=== PATIENT | female | born 1995 | race Hispanic/Latino ===

== ENCOUNTER 2018-11-01 14:02 | Inpatient (IN) | payer BC, OTHER ==
[2018-11-01] MEDS ORDERED: miSOPROStol 100 MCG TAB VAG PRN (16:07)
[2018-11-01] MEDS ORDERED: DIPHENHYDRAMINE 25 MG TAB/CAP PO PRN (16:09)
[2018-11-01] MEDS ORDERED: PROMETHAZINE 25 MG/ML VIAL IM PRN (16:09)
[2018-11-01] MEDS ORDERED: MIDAZOLAM HCL 2 MG/2 ML INJ IV PRN (16:09)
[2018-11-01] MEDS ORDERED: ZOLPIDEM TARTRATE 5 MG TABLET PO PRN (16:09)
[2018-11-01] MEDS ORDERED: Ringers Lactate 1,000 ML IV PRN (16:09)
[2018-11-01] MEDS ORDERED: MEPERIDINE HCL 25 MG/0.5 ML IV PRN (16:09)
[2018-11-01] MEDS ORDERED: METHYLERGONOVINE 0.2MG/ML AMP IM PRN (16:09)
[2018-11-01] MEDS ORDERED: CARBOPROST TROME 250 MCG/ML IM PRN (16:09)
[2018-11-01] MEDS ORDERED: MAGNES/ALUMIN/SIMET 30ML UCUP PO PRN (16:09)
[2018-11-01] MEDS ORDERED: BUTORPHANOL 1 MG/ML INJ IV PRN (16:09)
--- NOTE | 2018-11-01 16:58 | PREOPHP ---
Date of Admission: 11/01/2018 A 22-year-old primigravida, 38 weeks 6 days, with preeclampsia-mild. Blood pressures in the office 1 40/80, +1 to +2 proteinuria, +2 to +3 pretibial and general body edema, brisk reflexes. 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 Pros and cons of Cytotec discussed. Her cervix is unfavorable, but she wishes to proceed , and I think clinically we need to proceed at this point. She is 1 cm 50% effaced, soft, but the ba by is -2 or even higher station. In fact, I am not 100% sure the baby is vertex, but it has been in the office, and I think tonight it is, but we will order an x-ray just to be sure. If the baby is no t vertex, we will proceed with section tonight. Full admission talk given. Anticipate deli very sometime tomorrow. ARTURO/RIGO Voice ID: [id number]
[2018-11-01] MEDS ORDERED: Ringers Lactate 1,000 ML IV SCH (17:00)
[2018-11-01] MEDS ORDERED: OXYTOCIN/LR 20 UNIT/1,000 ML BAG IV SCH (17:00)
[2018-11-01 17:06] LABS: RPR Titer ND
--- NOTE | 2018-11-01 17:06 | RAD REPORT ---
EXAM DESCRIPTION: RAD - Abdomen 1 View (KUB) - 11/01/2018 4:57 pm CLINICAL HISTORY: . Assess presentation FINDINGS: Cephalic presentation. Spine maternal right
[2018-11-01 17:10] LABS: Absolute Lymphocytes (CBC) 1.7 K/uL (0.7-4.9); Basophils % 0.2 % (0-1.3); Hematocrit 36.6 % (36.0-45.0); Lymphocytes % 13.2 % (15.3-44.8); MPV 7.8 fL (7.6-11.3); Monocytes % 4.7 % (3.3-12.3); RBC Red Blood Cell Count 4.72 M/uL (3.86-4.86); Urine Appearance CLOUDY; Urine Bilirubin NEGATIVE (NEG); Urine Blood NEGATIVE (NEG); Urine Color YELLOW; Urine Glucose NEGATIVE (NEG); Urine Protein NEGATIVE (NEG); Urine Specific Gravity 1.025 (1.005-1.030)
[2018-11-01 17:15] LABS: Urine Microscopic Reflex ORDER UMIC
[2018-11-01 17:26] LABS: Urine Bacteria >50 /HPF (<20); Urine Culture Reflex Order REFLEXED; Urine RBC <5 /HPF (NONE SEEN)
[2018-11-01 17:48] VITALS: BMI 39.4
[2018-11-01] MEDS ORDERED: Ringers Lactate 1,000 ML IV ONE (20:27)
[2018-11-01 22:02] LABS: RPR (Rapid Plasma Reagin) NON-REACT (NON-REACT)
[2018-11-02] MEDS ORDERED: HYDRALAZINE HCL 20 MG/ML VIAL IV PRN ×2 (10:08→19:36)
[2018-11-02] MEDS ORDERED: MAGNESIUM SULF/STERILE WATER 1,000 ML IV SCH ×2 (11:00→20:00)
[2018-11-02] MEDS ORDERED: ROPIVACAINE HCL 100 ML IV PRN (11:13)
[2018-11-02] MEDS ORDERED: FENTANYL CITR 100 MCG/2 ML IV ONE (11:13)
[2018-11-02] MEDS ORDERED: ROPIVACAINE HCL 0.2% 20ML AMP SQ ONE (11:15)
[2018-11-02] MEDS ORDERED: CEFAZOLIN/SWI 2gm 2 GM/20 ML SYR IVP SCH (17:45)
[2018-11-02] MEDS ORDERED: METHYLERGONOVINE 0.2MG/ML AMP IM ONE (17:45)
[2018-11-02] MEDS ORDERED: CARBOPROST TROME 250 MCG/ML IM ONE (17:45)
[2018-11-02] MEDS ORDERED: CEFAZOLIN/SWI 2gm 2 GM/20 ML SYR ONE (17:51)
[2018-11-02] MEDS ORDERED: OXYTOCIN 10 UNIT/ML ML IV ONE (17:52)
[2018-11-02] MEDS ORDERED: LIDOCAINE 2% W/EPI 1:200,000 MPF 20 ML VIAL IM ONE ×2 (17:53→18:07)
[2018-11-02] MEDS ORDERED: NA CIT/CITRIC AC 30 ML ORAL UDC ONE (17:53)
[2018-11-02] MEDS ORDERED: METOCLOPRAMIDE 10 MG/2mL INJ ONE (17:53)
[2018-11-02] MEDS ORDERED: FAMOTIDINE 20 MG/2 ML VIAL IV ONE (17:53)
--- NOTE | 2018-11-02 18:49 | PN ---
We have moved to 22 milliunits at nurse's request. She is still having some dysfunctional labor monica lilly. She will have 3 to 4 contractions regularly and then space out and then contract again regularl y for 2 to 3 contractions. FHTs are reasonably reactive. The patient is so comfortable. She is asl eep and cannot feel anything. We have reduced the maintenance from 10 to 8. Again pelvic rocking di scussed. The baby is still definitely occiput posterior, but has come to a 0 station. I think if th e baby rotates it will give much more rapid progress. We will check her again in an hour or so. ARTURO/RIGO Voice ID: [id number] Report ID: [id number]
[2018-11-02] MEDS ORDERED: KETOROLAC 30 MG/ML INJ IM ONE (19:37)
--- NOTE | 2018-11-02 22:01 | PREOPHP ---
Date of Admission: 11/01/2018 History Of Present Illness: A 22-year-old primigravida, 39 weeks. Cytotec last night, removed this morning. Rupture of membranes, 1.5 cm. The patient progressed to 7.5 cm and has experienced seconda ry arrest of labor. Asynclitic position of the baby's head. Still 0 station, 7.5 cm for over 3-1/2 hours now in spite of being on up to 24 milliunits of Pitocin. Pitocin has been discontinued. The b alin looks good with good variability. She has an epidural but it is starting to wear off. Dr. Oscar hollis has ordered 15 cc of 2% lidocaine with epinephrine given. Pros and cons of discussed. T he patient is requesting to proceed at this point. Infection; blood loss; anesthetic complications; injury to bladder, bowel, ureter; postoperative complications; clots in legs and pneumonia discussed. The patient knows fully well this does not constitute all the possible problems that could occur du ring or following the surgery, wishes to proceed. Family History: Noncontributory. Allergies: SHE HAS NO ALLERGIES. Physical Examination: Vital Signs: Are stable other than her blood pressure being elevated and she was on magnesium sulfate for preeclampsia that has been temporarily discontinued. Heart and Lungs: Clear at this point. Pelvic exam: Is as stated. Extremities: The patient has +2 or more edema. Plan: We will proceed with primary section for failure to progress in labor. ARTURO/RIGO Voice ID: [id number]
--- NOTE | 2018-11-03 01:08 | OP ---
Surgeon: Alden Kimbrough MD This is a 22-year-old, primigravida, at 39 weeks at time of delivery. Had a Cytotec inserted yesterd ay. Had developed preeclampsia with an unfavorable cervix. During the labor, the patient progressed to 7.5 cm with baby straight OP and asynclitic. In spite of 22 milliunits of Pitocin, stuck at 7.5 cm for 3.5 hours or more. Decision was made to go with . Infection; blood loss; anesthetic complications; injury to bladder, bowel, ureter; postoperative complications; clots in legs; and pneu monia discussed. The patient knows fully well this does not constitute all the possible problems royce t could occur during or following surgery. Epidural anesthesia was employed. Patient had magnesium sulfate started during her labor; this was stopped during the delivery. After patient was prepped an d draped and time-out was performed, Pfannenstiel incision was created. The incision was carried to the fascia. The fascia was incised and incision carried transversely bilaterally. Anterior and post erior fascia planes were developed with both blunt and sharp dissection. Small bleeders were fulgura bryce. Peritoneum was entered bluntly. Low transverse uterine incision was created. A 5 pounds 12 ou nce male delivered through the incision. Apgars 9 and 9. Straight occiput posterior. Nuchal cord loosely x1. Cord blood specimen obtained. Placenta was removed manually. Uterus clot removed from the peritoneal cavity and cleared off clot and blood. Mild to moderate hypotonus noted. 0.10 units of Pitocin given into the myometrium and 250 mg of Hemabate given IM. Estimated blood loss dur ing procedure 1100 cc. Uterus was closed with a running locked stitch followed by 2 [id number]-[id number] stitches in the left angle and then an imbricating stitch with 1 chromic. Gutters cleared off clot a nd blood. Uterus was replaced in the peritoneal cavity. Inspection of suture line showed no further bleeding. At this time, the muscles were reapproximated with 0 Vicryl 3 interrupted sutures. The f ascia was closed with 1 PDS, running from either angle to the midline. Subcutaneous tissue closed wi th 2-0 plain, absorbable david placed and then metal david. The patient had been given 2 g of An cef prior to the procedure. Tolerated all procedures well. Transferred back to her room in good con dition. Final Diagnoses: Term intrauterine , Cytotec for labor induction, failure to progress in la bor, persistent occiput posterior, preeclampsia, [id number]-[id number] uterine hypotonus. ARTURO/RIGO Voice ID: [id number] Report ID: [id number]
[2018-11-03 03:23] LABS: Hematocrit 35.9 % (36.0-45.0)
[2018-11-03] MEDS ORDERED: CEFAZOLIN 2 GM in NA CHLORIDE 0.9% 100 ML IVPB ONE (04:00)
--- NOTE | 2018-11-03 07:32 | PN ---
Postoperatively, patient has done quite well. Magnesium sulfate has been discontinued as her output far exceeds what was required. Vital signs are stable. Blood pressures are moderating. Lochia is n ormal. She has only had Toradol 1 time. No other pain medicines. She is reporting slight gas disco mfort this morning. We will give her a stimulant, and if it has not worked by the early afternoon, e ither a small suppository or small enema. Full postoperative talk given. We will discontinue her IV this morning, Mims catheter around lunchtime. If she continues to progress well, she will probably go home tomorrow afternoon. Full dismissal instructions given. At home, she is to report any tempe rature elevation of 100 degrees or greater, severe pain, heavy bleeding, or any other type of abnorma lities. We will send her home with tramadol for analgesia. She will come to the office next week fo r staple removal. She has had her Tdap immunization. She has no post epidural problems. Doing quit e well. ARTURO/RIGO Voice ID: [id number] Report ID: [id number]
[2018-11-03] MEDS ORDERED: OXYTOCIN/LR 20 UNIT/1,000 ML BAG IV SCH (08:00)
[2018-11-03] MEDS: Oxycodone HCl/Acetaminophen 1 TAB TAB PO PRN ×3 (08:30→19:42)
[2018-11-03] MEDS ORDERED: MAGNESIUM HYDROXIDE 8% 30 ML PO PRN (09:00)
[2018-11-04] MEDS: Oxycodone HCl/Acetaminophen 1 TAB TAB PO PRN ×2 (01:30→12:32)
[2018-11-04 08:20] VITALS: BP 140/83; TEMP 98.2
[2018-11-04 18:23] LABS: HBsAG Nonreactive (Nonreactive)
--- NOTE | 2018-11-05 02:31 | DS ---
Date of Discharge: 11/04/2018 A 22-year-old primigravida, 39 weeks at the time of delivery. The patient was followed antepartum. Rh positive. Immune to Rubella. Negative beta strep screen. Noted to have pre-eclampsia, unfavorable cervix. Cytotec was inserted x2 at 38 weeks and 6 days. The following morning at 39 weeks, rupture of membranes was performed. The patient was 1.5 cm at that time. Vertex well applied. During the day, received Stadol 1 mg IV, Phenergan 25 mg IM 1 time. Progressed slowly during the day. Showed signs of preeclampsia and was started on magnesium sulfate. At approximately 4-5 cm, requested and received epidural anesthesia. Progressed to approximately 7 cm, was noted to be straight occiput posterior early in the labor and with asynclitic vertex presentation. After achieving 7.5 cm, she stayed that way for 3-1/2 hours in spite of good contractions and up to 24 milliunits of Pitocin. It has decided to proceed with section. This was performed. A 5-pound and 12-ounce male infant was delivered, Apgars 9 and 9, from a straight occiput posterior and indeed asynclitic presentation. Mild uterine hypertonus. 10 units of Pitocin was given into the uterus directly and 250 mg of Hemabate given. Estimated blood loss 1100 cc. Ancef given for prophylaxis pre and postoperatively. The patient has done well, is afebrile, ambulating, and voiding. Lochia is normal. Her blood pressures have moderated, almost back down to normal. She will be dismissed later today to report back to my office next week for followup, to report any temperature elevation of 100 degrees or greater, severe pain, heavy bleeding, or any other type of abnormalities. Dismissed with tramadol, although she may elect to take Motrin instead. She has had her Tdap immunization. She has no post-epidural problems. Final Diagnoses: Term intrauterine 39 weeks at delivery, Cytotec for labor induction, preeclampsia primary section, straight occiput posterior asynclitic vertex presentation, uterine hypotonus epidural anesthesia. ARTURO/RIGO Voice ID: [id number] Report ID: [id number] GREGORY
--- NOTE | 2018-11-05 16:16 | PN ---
The patient is still 7.5 cm. She has not brought the baby down any further. Cervix on the right kendell e approximately 9 o'clock is still not retracted. Baby is definitely occiput posterior. Good variab ility noted. The epidural is starting to wear off and she is getting more comfortable. Blood pressu res in the 150 range but still reasonable. I have discussed with the patient and her entire family, which is about 4 to 5 people in the room that we can wait another half an hour to an hour and see if any cervical change has occurred or proceed with a . Infection, blood loss, blood clots in l egs, all discussed as risks factors. We will give the family a few minutes and then decide what to d o. ARTURO/RIGO Voice ID: [id number] Report ID: [id number]
--- NOTE | 2018-11-05 16:16 | PN ---
The patient had 2 doses of Cytotec and then was started on oxytocin. She has progressed to 1.5 cm, 5 0% effaced, vertex, well applied at -1 station. Rupture of membranes, clear fluid. FHTs normal, jodi ctive. Anticipate more rapid progress from this point, although she knows she is in the very first p art of the labor. She is having back discomfort. The baby is occiput posterior. Pelvic rocking dis cussed. Doing well at this point. Blood pressures are very moderate. No need for magnesium sulfate at this point. ARTURO/RIGO Voice ID: [id number] Report ID: [id number]
--- NOTE | 2018-11-06 08:29 | PN ---
The patient is now 4 cm, 80-90% effaced, vertex, -1 station well applied. She is requesting epidural . She has been pre-hydrated. Anesthesia is here to perform the epidural. Hopefully, we will see mo re rapid progress once she gets more comfortable. Pelvic rocks again suggested. ARTURO/RIGO Voice ID: [id number] Report ID: [id number]
== END 2018-11-04 12:54 | disposition home or self-care (01) | DRG 788 ==
LOC: 2ND-WC 14:02
PROVIDERS: ADMIT Specialist; ATTEND Specialist
PROC: 3E0P7VZ Introduction of Hormone into Female Reproductive, Via Natural or Artificial Opening (ICD-10-PCS; principal; 2018-11-01)
PROC: 3E033VJ Introduction of Other Hormone into Peripheral Vein, Percutaneous Approach (ICD-10-PCS; 2018-11-01)
PROC: 10907ZC Drainage of Amniotic Fluid, Therapeutic from Products of Conception, Via Natural or Artificial Opening (ICD-10-PCS; 2018-11-01)
PROC: 10D00Z1 Extraction of Products of Conception, Low, Open Approach (ICD-10-PCS; 2018-11-02)
DX: O32.8XX0 Maternal care for other malpresentation of fetus, not applicable or unspecified (principal); O64.0XX0 Obstructed labor due to incomplete rotation of fetal head, not applicable or unspecified; O62.2 Other uterine inertia; O69.81X0 Labor and delivery complicated by cord around neck, without compression, not applicable or unspecified; O14.04 Mild to moderate pre-eclampsia, complicating childbirth; Z3A.39 39 weeks gestation of pregnancy; Z37.0 Single live birth
CPT/HCPCS: 36415; 74018; 81003; 81015; 83735; 85014; 85018; 85025; 86592; 86850; 86900; 86901; 87086; 87088; 87340; 88307; J0595; J0690; J2210; J2550; J2590; J2765; J2795; J3010; J3475

== ENCOUNTER 2020-09-23 19:56 | Emergency (ER) | payer BC, OTHER, SELFPAY ==
[2020-09-23 23:29] LABS: SARS-COV-2 RT PCR POSITIVE (NEGATIVE)
--- NOTE | 2020-09-23 23:40 | ER ---
Nurse's Notes [facility] Name: Grace Lowery Age: 24 yrs Sex: Female : 1995 Arrival Date: 09/23/2020 Time: 20:01 Bed 5 Private MD: Diagnosis: Coronavirus infection, unspecified Presentation: 09/23 20:31 Chief complaint: Patient states: Headache, sore throat, cough, fever and chills began vg1 today. Denies NVD. Coronavirus screen: Client denies travel out of the [place] in the last 14 days. Client presents with at least one sign or symptom that may indicate coronavirus-19. Standard/surgical mask placed on the client. Ebola Screen: Patient negative for fever greater than or equal to 101.5 degrees Fahrenheit, and additional compatible Ebola Virus Disease symptoms. Initial Sepsis Screen: Does the patient meet any 2 criteria? No. Patient's initial sepsis screen is negative. Does the patient have a suspected source of infection? No. Patient's initial sepsis screen is negative. Risk Assessment: Do you want to hurt yourself or someone else? Patient reports no desire to harm self or others. Onset of symptoms was September 23, 2020. 20:31 Method Of Arrival: Ambulatory vg1 20:31 Acuity: BENNY 3 vg1 Triage Assessment: 20:35 Headache History: Denies prior headaches. General: Appears in no apparent distress. vg1 comfortable, Behavior is calm, cooperative. Pain: Complains of pain in head Pain currently is 7 out of 10 on a pain scale. Pain began around noon time Also complains of no other associated symptoms. Neuro: Level of Consciousness is awake, alert, obeys commands, Oriented to person, place, time, situation. EP TECH: 20:35 LMP 05/25/2020, Pt states is on control and has menstrual cycles every 3-6 months vg1 Historical: - Home Meds: 20:35 Adipex [Active]; vg1 - PMHx: 20:35 None; vg1 - Immunization history:: Adult Immunizations. - Social history:: Smoking status: Patient denies any tobacco usage or history of. Screenin:15 Abuse screen: Denies threats or abuse. Denies injuries from another. Nutritional jm8 screening: No deficits noted. Tuberculosis screening: No symptoms or risk factors identified. Fall Risk None identified. Assessment: 23:13 General: Appears in no apparent distress. comfortable, Behavior is calm, cooperative, jm8 appropriate for age. Pain: Complains of pain in head Pain currently is 5 out of 10 on a pain scale. Neuro: No deficits noted. Level of Consciousness is awake, alert, obeys commands, Oriented to person, place, time. Cardiovascular: No deficits noted. Respiratory: Reports cough that is sore throat, fever Airway is patent Trachea midline Respiratory effort is even, unlabored, Respiratory pattern is regular, symmetrical, Onset: The symptoms/episode began/occurred today, the patient has mild shortness of breath. GI: No deficits noted. No signs and/or symptoms were reported involving the gastrointestinal system. : No deficits noted. No signs and/or symptoms were reported regarding the genitourinary system. EENT: No deficits noted. No signs and/or symptoms were reported regarding the EENT system. Derm: No deficits noted. No signs and/or symptoms reported regarding the dermatologic system. Skin is intact, is healthy with good turgor, Skin is dry, Skin is pink, warm \T\ dry. normal. Musculoskeletal: No deficits noted. No signs and/or symptoms reported regarding the musculoskeletal system. Vital Signs: 20:31 BP 149 / 96; Pulse 130; Resp 16; Temp 100.7(O); Pulse Ox 100% on R/A; Weight 83.91 kg; vg1 Height 5 ft. 3 in. (160.02 cm); Pain 7/10; 23:54 BP 122 / 78; Pulse 112; Resp 16; Temp 100.5(O); Pulse Ox 99% ; jm8 20:31 Body Mass Index 32.77 (83.91 kg, 160.02 cm) vg1 ED Course: 20:01 Patient arrived in ED. cf2 20:24 Rosa Elena Piña FNP-C is [facility]. kb 20:24 Annie Melvin MD is Attending Physician. kb 20:35 Triage completed. vg1 20:35 Arm band placed on. vg1 23:15 Patient has correct armband on for positive identification. Bed in low position. Call jm8 light in reach. Side rails up X2. 23:54 Patient did not have IV access during this emergency room visit. jm8 23:55 No provider procedures requiring assistance completed. jm8 Administered Medications: 23:54 Drug: Ibuprofen 800 mg Route: PO; brian8 23:55 Follow up: Response: No adverse reaction; Medication administered at discharge. jm8 Outcome: 23:40 Discharge ordered by . tal 23:55 Discharged to home ambulatory. [email or web address] 23:55 Condition: good 23:55 Discharge instructions given to patient, Instructed on discharge instructions, follow up and referral plans. medication usage, Demonstrated understanding of instructions, follow-up care, medications. 23:56 Patient left the ED. jm8 Signatures: Rosa Elena Piña, STYLE ADVISOR-C STYLE ADVISOR-Joyti Cummings cf2 Sabrina Murray, RN RN vg1 Yogi Rogers, RN RN jm8
--- NOTE | 2020-09-23 23:40 | EDPHYS ---
Physician Documentation [facility] Name: Grace Lowery Age: 24 yrs Sex: Female : 1995 Arrival Date: 09/23/2020 Time: 20:01 Bed 5 Private MD: ED Physician Annie Melvin HPI: 09/23 23:38 This 24 yrs old Female presents to ER via Ambulatory with complaints of kb Headache, Sore Throat, Fever, CHILLS. 23:38 The patient or guardian reports cough, flu symptoms, low-grade fever. Onset: The kb symptoms/episode began/occurred today. Severity of symptoms: At their worst the symptoms were moderate, in the emergency department the symptoms are unchanged. Modifying factors: The symptoms are alleviated by nothing, the symptoms are aggravated by nothing. Associated signs and symptoms: Pertinent positives: fever, sore throat. The patient has not experienced similar symptoms in the past. The patient has not recently seen a physician. Pt reports sore throat, fever, chills, congestion and headache that started today. 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 - Social history:: Smoking status: Patient denies any tobacco usage or history of. ROS: 23:36 Cardiovascular: Negative for chest pain, palpitations, and edema, Abdomen/GI: Negative kb for abdominal pain, nausea, vomiting, diarrhea, and constipation. 23:36 Constitutional: Positive for body aches, chills, fatigue, fever, malaise. 23:36 ENT: Positive for sore throat. 23:36 Respiratory: Positive for cough, Negative for dyspnea on exertion, hemoptysis, orthopnea, pleurisy, shortness of breath, sputum production, wheezing. 23:36 Neuro: Positive for headache. 23:36 All other systems are negative. Exam: 23:38 Constitutional: This is a well developed, well nourished patient who is awake, alert, kb and in no acute distress. Head/Face: Normocephalic, atraumatic. Cardiovascular: Regular rate and rhythm with a normal S1 and S2. No gallops, murmurs, or rubs. No pulse deficits. Respiratory: Respirations even and unlabored. No increased work of breathing, no retractions or nasal flaring. Abdomen/GI: Soft, non-tender. No distention Skin: Warm, dry with normal turgor. Normal color. MS/ Extremity: Pulses equal, no cyanosis. Neurovascular intact. Full, normal range of motion. Neuro: Awake and alert, GCS 15, oriented to person, place, time, and situation. Moves all extremities. Normal gait. Psych: Awake, alert, with orientation to person, place and time. Behavior, mood, and affect are within normal limits. 23:38 ENT: Posterior pharynx: Airway: normal, no evidence of obstruction, Tonsils: are normal in appearance, Uvula: normal, midline, swelling, is not appreciated, erythema, that is moderate. Vital Signs: 20:31 BP 149 / 96; Pulse 130; Resp 16; Temp 100.7(O); Pulse Ox 100% on R/A; Weight 83.91 kg; vg1 Height 5 ft. 3 in. (160.02 cm); Pain 7/10; 23:54 BP 122 / 78; Pulse 112; Resp 16; Temp 100.5(O); Pulse Ox 99% ; jm8 20:31 Body Mass Index 32.77 (83.91 kg, 160.02 cm) vg1 MDM: 22:22 Patient medically screened. kb 23:36 Data reviewed: vital signs, nurses notes. Data interpreted: Pulse oximetry: on room air kb is 100 %. Interpretation: normal. Counseling: I had a detailed discussion with the patient and/or guardian regarding: the historical points, exam findings, and any diagnostic results supporting the discharge/admit diagnosis, lab results, the need for outpatient follow up, a family practitioner, to return to the emergency department if symptoms worsen or persist or if there are any questions or concerns that arise at home. 09/23 20:42 Order name: Strep; Complete Time: 23:07 kb 09/23 23:02 Order name: Throat Culture EDMS 09/23 23:30 Order name: COVID-19/FLU A+B; Complete Time: 23:34 EDMS Administered Medications: 23:54 Drug: Ibuprofen 800 mg Route: PO; 8 23:55 Follow up: Response: No adverse reaction; Medication administered at discharge. jm8 Disposition: 09/23/20 23:40 Discharged to Home. Impression: Coronavirus infection, unspecified. - Condition is Stable. - Discharge Instructions: Viral Respiratory Infection, Badu-Et-Bymj, COVID-19. - Medication Reconciliation Form, Thank You Letter, Antibiotic Education, Prescription Opioid Use form. - Follow up: Emergency Department; When: As needed; Reason: Worsening of condition. Follow up: Private Physician; When: 2 - 3 days; Reason: Recheck today's complaints, Continuance of care, Re-evaluation by your physician. Signatures: Dispatcher [employer] EDMS Rosa Elena Piña, REPORTING DEVELOPER-C REPORTING DEVELOPER-Ckb Sabrina Murray, RN RN vg1 Yogi Rogers, RN RN jm8 Corrections: (The following items were deleted from the chart) 22:40 20:42 Influenza Screen (A \T\ B)+BA.LAB.BRZ ordered. EDTN EDMS 22:40 20:42 CORONAVIRUS+MR.LAB.BRZ ordered. EDTN EDMS 23:56 23:40 09/23/2020 23:40 Discharged to Home. Impression: Coronavirus infection, jm8 unspecified. Condition is Stable. Forms are Medication Reconciliation Form, Thank You Letter, Antibiotic Education, Prescription Opioid Use. Follow up: Emergency Department; When: As needed; Reason: Worsening of condition. Follow up: Private Physician; When: 2 - 3 days; Reason: Recheck today's complaints, Continuance of care, Re-evaluation by your physician. kb
[2020-09-24] MEDS ORDERED: IBUPROFEN 400 MG TAB ONE (00:09)
[2020-09-24 02:02] VITALS: BP 122/78; TEMP 100.5; O2SAT 99
== END 2020-09-23 23:56 | disposition home or self-care (01) ==
LOC: ER 19:56
DX: U07.1 COVID-19 (principal)
CPT/HCPCS: 0240U; 87070; 87081; 99283

== ENCOUNTER 2022-04-28 16:36 | Emergency (ER) | payer BC, OTHER ==
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
[2022-04-28 19:08] VITALS: BP 161/92; TEMP 98; O2SAT 100
== END 2022-04-28 18:36 | disposition home or self-care (01) ==
LOC: ER 16:36
DX: S16.1XXA Strain of muscle, fascia and tendon at neck level, initial encounter (principal); S20.219A Contusion of unspecified front wall of thorax, initial encounter
CPT/HCPCS: 70450; 71045; 72125; 99283

== ENCOUNTER 2024-07-17 14:02 | Emergency (ER) | payer SELFPAY ==
--- OUTSIDE RECORDS SUMMARY | 2024-07-17 14:06 | XMS REPORT | Continuity of Care Document ---
Author Name Unknown Address [address] [place] [address] [facility] Address [address] [place] [address] Care Team Providers Care User Experience Lead Name Role Phone Crissy Pham Primary Care Physician [email or web address] Attending Clinician Unavaila ble [email or web address] Admitting Clinician Unavaila ble Medications Ordered Medication Name Filled Medication Name Start Date Stop Date Current Medication? Ordering Clinician Indication Dosage Frequency Signature (SIG) Comments Components Source phentermine 37.5 mg capsule 2023-05 00:00: 00 Yes 1mg Zev Judge Vital Signs Vital Name Observation Time Observation Value Comments S ource Respiratory Rate 2024-04-09 08:12:00 Zev Judge BP Systolic 2024-04-09 08:12:00 148 mm[Hg] Matias Judge BP Diastolic 2024-04-09 08:12:00 102 mm[Hg] De Judge Weight Measured 2024-04-09 08:12:00 191.20 pounds Zev Judge Height Measured 2024-04-09 08:12:00 63.00 inches Zev Judge Body Temperature 2024-04-09 08:12:00 98.30 degrees Zev Judge Heart Rate 2024-04-09 08:12:00 74.00 /min Zenobia Judge Encounters Start Date/Time End Date/Time Encounter Type Admission Type Attending Clinicians Care Facility Care Department Encounter ID Source 2024-04-11 13:19:25 2024-04-11 13:19:25 Outpatient [facility] [id number] Zev Judge 2024-04-09 08:04:56 2024-04-09 08:04:56 Outpatient [facility] [id number] Zev Judge 2024-04-09 00:00:00 2024-04-09 00:00:00 Outpatient Visit [facility] [id number] Zev Judge 2023-03-01 00:00:00 2023-03-01 00:00:00 Outpatient [email or web address] [email or web address]_S [facility] [id number] [facility] Medical Results Test Description Test Time Test Comments Results Result Co mments Source VARICELLA ZOSTER [id number] 12:55:55* Test Item Value Reference Range Interpretation Comme nts VARICELLA ZOSTER IgG (test code = 49607) 7.29 S/CO SEE BELOW PLEASE NOTE: NEW REFERENCE RANGE AND UNITS OF MEASURE. INTERPRETATION UNITS RANGE ----- ----- NEGATIVE S/CO <1.00 POSITIVE S/CO >=1.00 RUBEOLA AB, [id number] 12:55:55* Test Item Value Reference Range Interpretation Comme nts RUBEOLA AB, IgG (test code = 92451) 23.8 AU/ML SEE BELOW INTERPRETATION U NITS RANGE ----- ----- NEGATIVE AU/ML <13.5 EQUIVOCAL AU/ML 13.5-16.4 NOTE: CONSIDER RETESTING IN A CLINICALLY SUITABLE PERIOD OF TIME, NO SOONER THAN 1-2 WEEKS. POSITIVE AU/ML >=16.5 RUBELLA ANTIBODY [id number] 04:02:51* Test Item Value Reference Range Interpretation Comme nts RUBELLA ANTIBODY SCREEN (test code = 4600) 22 IU/ML SEE BELOW RUBELLA IgG INTERP (test code = 85013) REACTIVE REACTIVE INTERPRETATI ON UNITS RANGE ----- ----- NON-REACTIVE/NON-IMMUNE IU/ML <10 REACTIVE/IMMUNE IU/ML >=10 HEPATITIS A [id number] 04:02:51* Test Item Value Reference Range Interpretation Comme nts HEPATITIS A IgM (test code = 2728) NON-REACTIVE NON-REACTIVE UNLESS OTHERW ISE INDICATED, ALL TESTING PERFORMED AT [facility] [address] [place] [address] TAX AUDITOR: SLIM QUINN M.D. CLIA NUMBER [id number] [facility] [place]. [id number] HEPATITIS A TOTAL AB REFLEX TO [id number] 04:02:51* Test Item Value Reference Range Interpretation Comme nts HEPATITIS A TOTAL AB (test c ode = 2725) REACTIVE NON-REACTIVE A HEPATITIS B SURFACE [id number] 04:02:51* Test Item Value Reference Range Interpretation Comme nts HEPATITIS B SURFACE AB (test code = 2737) NON-REACTIVE NON-REACTIVE SARS-CoV-2 (COVID-19) by RT-PCR (HIGH RISK)2020-05-20 00:00:00* Test Item Value Reference Range Interpretation Comme nts SARS-CoV-2 INTERPRETATION (t est code = 88505) NEGATIVE SOURCE (test code = 28187) NOT SPECIFIED Zev Judge Notes Date/Time Note Provider Source Zev Judge [facility]
[2024-07-17 15:10] LABS: Influenza A Ag Negative; Influenza B Ag Negative; SARS-CoV-2 Antigen Rapid Res Negative (Negative)
--- NOTE | 2024-07-17 15:13 | RAD REPORT ---
EXAM: Chest Pa And Lat (2 Views) HISTORY: 28 years Female Congestion;Cough COMPARISON: 04/28/2022 FINDINGS: LUNGS/PLEURA: The lungs are clear. No pleural effusions or pneumothorax. No pulmonary edema. CARDIAC/MEDIASTINUM: The cardiac silhouette is within normal limits. UPPER ABDOMEN: No significant abnormality. BONES: No acute abnormality. LINES/TUBES/OTHER: N/A IMPRESSION: No evidence of acute cardiopulmonary disease.
--- NOTE | 2024-07-17 15:15 | ER ---
Nurse's Notes [facility] Tre Name: Grace Lowery Age: 28 yrs Sex: Female : 1995 Arrival Date: 07/17/2024 Time: 14:02 Bed DIS1 Private MD: Diagnosis: Viral infection, unspecified Presentation: 07/17 14:36 Chief complaint: Patient states: Cough, congestion, and sore throat onset 1 week ago. cm10 Pt's son also sick with similar symptoms. Coronavirus screen: Client denies travel out of the [place] in the last 14 days. Ebola Screen: Patient denies travel to an Ebola-affected area in the 21 days before illness onset. Initial Sepsis Screen: Does the patient meet any 2 criteria? No. Patient's initial sepsis screen is negative. Does the patient have a suspected source of infection? No. Patient's initial sepsis screen is negative. Risk Assessment: Do you want to hurt yourself or someone else? Patient reports no desire to harm self or others. Onset of symptoms was July 17, 2024. 14:36 Method Of Arrival: Ambulatory 10 14:36 Acuity: BENNY 4 cm10 Triage Assessment: 14:38 General: Appears in no apparent distress. comfortable, Behavior is calm, cooperative. cm10 EENT: Reports pain when swallowing. Neuro: No deficits noted. Level of Consciousness is awake, alert, obeys commands, Oriented to person, place, time, situation, Appropriate for age. Respiratory: No deficits noted. Airway is patent Respiratory effort is even, unlabored, Respiratory pattern is regular, symmetrical. Respiratory: Reports cough that is. Historical: - Allergies: 14:37 No Known Allergies; cm10 - Home Meds: 14:37 None [Active]; cm10 - PMHx: 14:37 None; cm10 - PSHx: 14:37 section; cm10 - Immunization history:: Adult Immunizations up to date. - Infectious Disease History:: Denies. - Social history:: Smoking status: Patient denies any tobacco usage or history of. Screenin:55 [facility] ED Fall Risk Assessment (Adult) History of falling in the last 3 months, iw including since admission No falls in past 3 months (0 pts) Confusion or Disorientation No (0 pts) Intoxicated or Sedated No (0 pts) Impaired Gait No (0 pts) Mobility Assist Device Used No (0 pt) Altered Elimination No (0 pt) Score/Fall Risk Level 0 - 2 = Low Risk Oriented to surroundings, Maintained a safe environment. Abuse screen: Denies threats or abuse. Denies injuries from another. Nutritional screening: No deficits noted. Tuberculosis screening: No symptoms or risk factors identified. Assessment: 15:40 Reassessment: Patient appears in no apparent distress at this time. Patient and/or iw family updated on plan of care and expected duration. Pain level reassessed. Patient is alert, oriented x 3, equal unlabored respirations, skin warm/dry/pink. Vital Signs: 14:36 BP 160 / 94; Pulse 86; Resp 15; Temp 98.6; Pulse Ox 98% on R/A; Weight 86.18 kg; Height cm10 5 ft. 3 in. ; Pain 4/10; 14:36 Body Mass Index 33.66 (86.18 kg, 160.02 cm) cm10 14:36 Pain Scale: Adult cm10 ED Course: 14:08 Patient arrived in ED. al6 14:08 Alyson Mccartney PA-C is PHCP. sb4 14:08 Yony Rutledge MD is Attending Physician. sb4 14:37 Triage completed. cm10 14:38 Arm band placed on right wrist. Patient placed in an exam room, on a stretcher. cm10 14:42 Group A Streptococcus Rapid Sent. cm10 14:42 COVID-19 Ag + Flu A+B Ag Sent. cm10 15:05 X-ray completed. Patient tolerated procedure well. mh1 15:08 Chest Pa And Lat (2 Views) XRAY In Process Unspecified. EDMS 15:55 Gege Greenberg, RN is Primary Nurse. iw 15:56 Patient has correct armband on for positive identification. iw Administered Medications: 16:08 Drug: Dexamethasone IM 10 mg IM once Route: IM; Site: right ventrogluteal; iw 16:27 Follow up: Response: No adverse reaction iw Medication: 15:55 VIS not applicable for this client. iw Outcome: 15:14 Discharge ordered by . sb4 16:25 Patient left the ED. iw Signatures: Dispatcher [employer] EDMS Loni Alaniz 1 Gege Greenberg, RN RN iw Alyson Mccartney PA-C PA-C sb4 Malika Nair MIGUEL RN cm10 Keara Del Toro alGonzález
--- NOTE | 2024-07-17 15:15 | EDPHYS ---
Physician Documentation [facility] Name: Grace Lowery Age: 28 yrs Sex: Female : 1995 Arrival Date: 07/17/2024 Time: 14:02 Bed DIS1 Private MD: ED Physician Yony Rutledge HPI: 07/17 14:37 This 28 yrs old Female presents to ER via Unassigned with complaints of Flu sb4 Symptoms. 14:37 Cough, congestion, sore throat x 1 week. 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 Additionally, her 5-year-old son has been sick with similar symptoms. She has been taking lwst-oro-kjohegh medications that significant relief of symptoms. Denies any fever, chills, nausea, vomiting, diarrhea.. Historical: - Allergies: 14:37 No Known Allergies; cm10 - Home Meds: 14:37 None [Active]; cm10 - PMHx: 14:37 None; cm10 - PSHx: 14:37 section; cm10 - Immunization history:: Adult Immunizations up to date. - Infectious Disease History:: Denies. - Social history:: Smoking status: Patient denies any tobacco usage or history of. ROS: 14:37 Constitutional: Negative for fever, chills, and weight loss, sb4 14:37 ENT: Positive for sinus congestion, sore throat, 14:37 Respiratory: Positive for cough, 14:37 All other systems are negative, Exam: 14:37 Constitutional: This is a well developed, well nourished patient who is awake, alert, sb4 and in no acute distress. Head/Face: Normocephalic, atraumatic. Eyes: Extra-ocular motions intact. Periorbital areas with no swelling, redness, or edema. ENT: Mucous membranes moist. Cardiovascular: Regular rate and rhythm with a normal S1 and S2. Respiratory: No increased work of breathing, no retractions or nasal flaring. Abdomen/GI: Soft, non-tender, no distension. Skin: Warm, dry with normal turgor. Normal color with no rashes, no lesions, and no evidence of cellulitis. 14:37 ENT: TM's: are normal, Posterior pharynx: is normal, Vital Signs: 14:36 BP 160 / 94; Pulse 86; Resp 15; Temp 98.6; Pulse Ox 98% on R/A; Weight 86.18 kg; Height cm10 5 ft. 3 in. ; Pain 4/10; 14:36 Body Mass Index 33.66 (86.18 kg, 160.02 cm) cm10 14:36 Pain Scale: Adult cm10 MDM: 14:15 Medical Screening Exam initiated sb4 15:14 Data reviewed: vital signs, nurses notes, lab test result(s), radiologic studies, and sb4 as a result, I will discharge patient. Counseling: I had a detailed discussion with the patient and/or guardian regarding the historical points, exam findings, and any diagnostic results supporting the discharge/admit diagnosis, the presence of at least one elevated blood pressure reading (>120/80) during this emergency department visit, lab results, radiology results, the need for outpatient follow up, for definitive care, to return to the emergency department if symptoms worsen or persist or if there are any questions or concerns that arise at home. 07/17 14:34 Order name: COVID-19 Ag + Flu A+B Ag; Complete Time: 15:10 sb4 07/17 14:34 Order name: Group A Streptococcus Rapid; Complete Time: 15:10 sb4 07/17 15:12 Order name: Throat Culture EDMN 07/17 14:34 Order name: Chest Pa And Lat (2 Views) XRAY; Complete Time: 15:14 sb4 Administered Medications: 16:08 Drug: Dexamethasone IM 10 mg IM once Route: IM; Site: right ventrogluteal; iw 16:27 Follow up: Response: No adverse reaction iw Disposition Summary: 07/17/24 15:14 Discharge Ordered Notes: Location: Home sb4 Problem: an ongoing problem sb4 Symptoms: are unchanged sb4 Condition: Stable sb4 Diagnosis - Viral infection, unspecified sb4 Followup: sb4 - With: Private Physician - When: As needed - Reason: Recheck today's complaints, Re-evaluation by your physician Discharge Instructions: - Discharge Summary Sheet sb4 - Viral Illness, Adult sb4 Forms: - Work release form iw - Patient Portal Instructions sb4 - Leadership Thank You Letter sb4 Prescriptions: - Zeina-D 12 Hour 60-120 mg Oral Tablet Sustained Release 12 hr - take 1 tablet ORAL route every 12 hours As needed; 20 tablet; Refills: 0, sb4 Product Selection Permitted - Prednisone 20 mg Oral Tablet - take 2 tablets ORAL route once daily for 5 days; 10 tablet; Refills: 0, Product sb4 Selection Permitted Signatures: Dispatcher [employer] Gege Meza, RN RN Alyson Cooper, PATerrance PATerrance sb4 Malika Nair RN RN cm10
[2024-07-17] MEDS ORDERED: dexAMETHasone 10 MG/ML VIAL ONE (15:57)
[2024-07-17 22:39] VITALS: BP 160/94; TEMP 98.6; O2SAT 98
== END 2024-07-17 16:25 | disposition home or self-care (01) ==
LOC: ER 14:02
DX: B34.9 Viral infection, unspecified (principal); Z11.52 Encounter for screening for COVID-19
CPT/HCPCS: 36415; 71046; 87070; 87428; J1100